=== PATIENT | male | born 1950 | race Native Hawaiian/Other Pacific Islander ===

== ENCOUNTER 2017-05-14 10:24 | Outpatient (CLI) | payer BC | END 2017-05-14 11:30 | disposition home or self-care (01) | LOC: RAD 10:24 | DX: I10 Essential (primary) hypertension (principal) ==

== ENCOUNTER 2017-05-20 07:15 | Outpatient (CLI) | payer OTHER, BC ==
[2017-05-20 10:28] LABS: POTASSIUM 3.3 mmol/L (3.6-5.2)
== END 2017-05-20 08:15 | disposition home or self-care (01) ==
LOC: LABW 07:15
PROVIDERS: Internal Medicine
DX: R73.9 Hyperglycemia, unspecified (principal); I10 Essential (primary) hypertension; Z12.5 Encounter for screening for malignant neoplasm of prostate
CPT/HCPCS: 36415; 80053; 80061; 81000; 82951; 82952; 83036; 84153; 84403; 84439; 84443

== ENCOUNTER 2017-10-13 08:51 | Outpatient (CLI) | payer OTHER, BC ==
[2017-10-13 14:55] LABS: POTASSIUM 3.8 mmol/L (3.6-5.2)
[2017-10-13 16:25] LABS: PLATELET COUNT 182 K/uL (142-355)
== END 2017-10-13 19:55 | disposition home or self-care (01) ==
LOC: LABW 08:51
PROVIDERS: Internal Medicine
DX: E11.9 Type 2 diabetes mellitus without complications (principal); Z79.899 Other long term (current) drug therapy
CPT/HCPCS: 36415; 80053; 80061; 81000; 83036; 84443; 85027

== ENCOUNTER 2018-04-13 09:07 | Outpatient (CLI) | payer OTHER, BC ==
[2018-04-13 09:51] LABS: PLATELET COUNT 167 K/uL (142-355)
[2018-04-13 10:44] LABS: POTASSIUM 4.1 mmol/L (3.6-5.2)
== END 2018-04-13 22:34 | disposition home or self-care (01) ==
LOC: LABW 09:07
PROVIDERS: Internal Medicine
DX: E11.9 Type 2 diabetes mellitus without complications (principal)
CPT/HCPCS: 36415; 80053; 80061; 81000; 82043; 82570; 83036; 84443; 85027

== ENCOUNTER 2018-08-12 07:45 | Outpatient (CLI) | payer OTHER, BC ==
[2018-08-12 08:32] LABS: POTASSIUM 4.1 mmol/L (3.6-5.2)
[2018-08-12 08:45] LABS: PLATELET COUNT 179 K/uL (142-355)
== END 2018-08-12 19:12 | disposition home or self-care (01) ==
LOC: LABW 07:45
PROVIDERS: Internal Medicine
DX: Z12.5 Encounter for screening for malignant neoplasm of prostate (principal); E11.9 Type 2 diabetes mellitus without complications
CPT/HCPCS: 36415; 80053; 80061; 81000; 83036; 84153; 84439; 84443; 85027

== ENCOUNTER 2018-10-14 08:03 | Outpatient (CLI) | payer OTHER, BC ==
[2018-10-14 08:46] LABS: POTASSIUM 3.9 mmol/L (3.6-5.2)
== END 2018-10-14 20:23 | disposition home or self-care (01) ==
LOC: LABW 08:03
PROVIDERS: Internal Medicine
DX: E11.9 Type 2 diabetes mellitus without complications (principal)
CPT/HCPCS: 36415; 80053; 81000; 83036

== ENCOUNTER 2019-04-17 07:37 | Outpatient (CLI) | payer OTHER, BC ==
[2019-04-17 08:13] LABS: PLATELET COUNT 165 K/uL (142-355)
[2019-04-17 08:24] LABS: POTASSIUM 3.6 mmol/L (3.6-5.2)
== END 2019-04-17 21:38 | disposition home or self-care (01) ==
LOC: LABW 07:37
PROVIDERS: Internal Medicine
DX: E11.9 Type 2 diabetes mellitus without complications (principal)
CPT/HCPCS: 36415; 80053; 81000; 83036; 85027

== ENCOUNTER 2019-05-02 07:37 | Outpatient (CLI) | payer OTHER, BC | END 2019-05-02 23:14 | disposition home or self-care (01) | LOC: LABW 07:37 | PROVIDERS: Internal Medicine | DX: E11.9 Type 2 diabetes mellitus without complications (principal) | CPT/HCPCS: 36415; 80061 ==

== ENCOUNTER 2019-11-15 09:11 | Outpatient (CLI) | payer OTHER, BC ==
[2019-11-15 09:35] LABS: PLATELET COUNT 160 K/uL (142-355)
[2019-11-15 10:12] LABS: POTASSIUM 3.7 mmol/L (3.6-5.2)
== END 2019-11-15 20:53 | disposition home or self-care (01) ==
LOC: LABW 09:11
PROVIDERS: Internal Medicine
DX: E11.9 Type 2 diabetes mellitus without complications (principal); Z12.5 Encounter for screening for malignant neoplasm of prostate
CPT/HCPCS: 36415; 80053; 80061; 81000; 82043; 82570; 83036; 84153; 84439; 84443; 85027

== ENCOUNTER 2021-04-02 11:57 | Outpatient (CLI) | payer BC | END 2021-04-02 22:14 | disposition home or self-care (01) | LOC: RAD 11:57 | PROVIDERS: ATTEND Internal Medicine | DX: M79.642 Pain in left hand (principal) ==

== ENCOUNTER 2021-09-29 10:19 | Outpatient (CLI) | payer BC ==
[2021-09-29 11:07] LABS: PLATELET COUNT 213 K/uL (142-355)
== END 2021-09-29 18:51 | disposition home or self-care (01) ==
LOC: RAD 10:19
PROVIDERS: ATTEND Internal Medicine
DX: R05.9 Cough, unspecified (principal)
CPT/HCPCS: 36415; 85027; 87798

== ENCOUNTER 2022-02-09 14:17 | Outpatient (CLI) | payer BC | END 2022-02-09 18:55 | disposition home or self-care (01) | LOC: LABW 14:17 | PROVIDERS: ATTEND Podiatrist Foot & Ankle Surgery | DX: M10.071 Idiopathic gout, right ankle and foot (principal) | CPT/HCPCS: 36415; 84550 ==

== ENCOUNTER 2022-11-06 13:42 | Outpatient (CLI) | payer BC | END 2022-11-06 19:26 | disposition home or self-care (01) | LOC: MRI 13:42 | PROVIDERS: ATTEND Internal Medicine | DX: R41.82 Altered mental status, unspecified (principal) ==